=== PATIENT | female | born 1930 | race Caucasian/White ===

== ENCOUNTER 2019-07-03 11:21 | Inpatient (IN) | payer MEDICARE, BC, MEDICAID ==
[2019-07-03] VITALS (211 sets, daily range): BP systolic 123–131; BP diastolic 56–61; PULSE 57–72; TEMP 97.7–98.2; O2SAT 84–100
[~2019-07-03] VITALS: Ht 162.6 cm; Wt 87.9 kg
[~2019-07-03 11:21] MED LIST: ALERCAP25 MG PO; ASPIR-LOW81 MG PO; ASPIRIN E.C. 8181 MG PO; ATORVASTATIN PO; COUMADIN 6MG6 MG/TAB PO; FISH OIL1 IU PO; LEVOTHYROXINE PO; OSCAL W/VIT D250 MG PO
[2019-07-03 11:38] LABS: ARTERIAL BLD GAS O2 SATURATION 95.4 % (92-100); ARTERIAL BLD GAS TCO2 CT 25.8; ARTERIAL BLOOD GAS BASE EXCESS -5.2 (-2-2); ARTERIAL BLOOD GAS HCO3 23.9 meq/L (22-26); ARTERIAL BLOOD GAS PCO2 62.2 mmHg (35-45); ARTERIAL BLOOD GAS PO2 88.4 mmHg (80-100)
[2019-07-03 11:55] LABS: PROTHROMBIN TIME 11.2 SECONDS (9.7-12.8)
[2019-07-03 11:58] LABS: PARTIAL THROMBOPLASTIN TIME 29.2 SECONDS (26.0-37.0)
[2019-07-03 12:04] LABS: BASO % 0.5 % (0.0-2.0); EOS # 0.1 (0.0-0.7); EOS % 1.6 % (0-4.0); GRAN # 3.9 (1.4-6.5); HEMATOCRIT 45.8 % (37.0-47.0); HEMOGLOBIN 13.9 g/dl (12.5-16.0); LYMPH # 1.7 (1.2-3.4); MEAN CELL VOLUME 95 fl (80.0-100.0); MEAN CORPUSCULAR HEMOGLOBIN 29 pg (27.0-31.0); MEAN CORPUSCULAR HGB CONC 30 g/dl (33.0-37.0); MEAN PLATELET VOLUME 10.4 fl (7.4-10.4); MONO # 0.5 (0.1-0.6); MONO % 8.5 % (1.7-9.3); PLATELET COUNT 167 K/mm3 (130-400); RED BLOOD COUNT 4.82 M/mm3 (4.10-5.30); REDCELL DISTRIBUTION WIDTH-CV 11.9 % (11.5-14.5)
[2019-07-03] MEDS ORDERED: CELEXA 20MG20 MG/TAB PO (12:38)
[2019-07-03] MEDS ORDERED: ARICEPT10 MG PO (12:39)
[2019-07-03] MEDS ORDERED: LEVOXYL0.088 MG PO (12:39)
[2019-07-03] MEDS ORDERED: TYLENOL 325MG325 MG PO ×2 (12:40→12:41)
[2019-07-03] MEDS ORDERED: XARELTO10 MG PO (12:41)
[2019-07-03 13:05] LABS: ALANINE AMINOTRANSFERASE 25 U/L (9-52); ALKALINE PHOSPHATASE 73 U/L (50-136); ANION GAP 12 mmol/L (7-16); AST,SGOT 40 U/L (15-37); BILIRUBIN,TOTAL 0.6 mg/dL (0.0-1.0); BLOOD UREA NITROGEN 15 mg/dL (7-17); CALCIUM 9.3 mg/dL (8.4-10.2); CARBON DIOXIDE 25 mmol/L (22-30); CHLORIDE 104 mmol/L (98-107); CREATININE, serum 0.75 (0.52-1.25); GLUCOSE 219 mg/dL (74-106); LIPASE 25 U/L (23-300); POTASSIUM 4.1 mmol/L (3.4-5.0); SODIUM 140 mmol/L (137-145); TOTAL PROTEIN 7.4 gm/dL (6.4-8.2)
[2019-07-03 13:16] LABS: TROPONIN-I < 0.012 ng/mL (0.000-0.035)
--- NOTE | 2019-07-03 15:50 | NUR ---
Gilma was contacted by charge nurse to inquire about contacting [facility] for information about patient. GILMA contacted [facility] and spoke to Anirudh. Anirudh was able to contact this GILMA, and provide relevant information. He also informed Gilma that the nurse in charge of caring for the patient was faxing information to the ER. GILMA contacted charge nurse and gave her the information obtained.
--- NOTE | 2019-07-03 18:51 | NUR ---
Report received from ER and pt brought to ICU room 3 via stretcher. Pt able to stand and pivot to bed. Pt placed on monitor and assessment complete. Pt currently on heparin drip at 1450 units/hr or 14.5ml/hr. No concerns at this time, will continue to follow.
[2019-07-03 19:02] LABS: ARTERIAL BLOOD GAS PCO2 61.7 mmHg (35-45); ARTERIAL BLOOD GAS pH 7.27 (7.35-7.45)
[2019-07-03 19:03] LABS: ARTERIAL BLD GAS O2 SATURATION 97.9 % (92-100); ARTERIAL BLOOD GAS BASE EXCESS -0.6 (-2-2); ARTERIAL BLOOD GAS HCO3 27.6 meq/L (22-26); ARTERIAL BLOOD GAS PO2 114.7 mmHg (80-100)
--- NOTE | 2019-07-03 19:15 | NUR ---
Report given to Jordan ALVAREZ and care transfered. Attempted to call [facility] for updated med list. Message left for RN electronic engineering draftsperson.
--- NOTE | 2019-07-03 19:17 | NUR ---
RECEIVED REPORT FROM KIM AYALA. PT SITTING UP IN BED EATING DINNER. FAMILY AT BEDSIDE. PT PICKS AT IV LINE, NO SIGNS OF INFLITRAITON NOTED. WILL MONITOR PT AND WILL NEED FREQUENT REORIENTATION. MOOD PLEASANT. PT ON 4L VIA NC. VSS. CALL LIGHT WITHIN REACH.
--- NOTE | 2019-07-03 19:40 | NUR ---
SPOKE WITH KIM GRAYSON FROM [facility] TO CONFIRM INFLUENZA VACCINATIONS AND CODE STATUS. KENAN STATES SHE HEARD FAMILY TELL THE ER STAFF FOR PT TO BE A DNR AND IS UP TO DATE ON VACCINE.
[2019-07-03] MEDS ORDERED: CYANOCOBAL1000 MCG/M IM (19:53)
--- NOTE | 2019-07-03 21:30 | NUR ---
RT AT BEDSIDE TO PLACE BIPAP AND ADMINISTER BREATHING TX PER ORDERS. PT REFUSES BOTH TREATMENTS AT THIS TIME. PT STATES " I DO NOT FEEL SHORT OF BREATH." NO ACUTE S/S OF RESP DISTRESS NOTED. POX 100% ON 4L VIA NC. EVEN CHEST RISE AND FALL. NORMAL SKIN COLOR, NO CYANOSIS NOTED. WILL CONTINUE TO MONITOR FOR ANY CHANGES IN RESP STATUS. ALL VSS.
--- NOTE | 2019-07-03 21:36 | NUR ---
PT IS REFUSING TO WEAR A BIPAP AND IS REFUSING ANY BREATHING TREATMENTS. SHE WAS INFORMED THAT IF SHE WERE TO BECOME SHORT OF BREATH AND NEED A BREATHING TREATMENT THAT SHE CAN HAVE THE RN CALL FOR A PRN TREATMENT. RN WAS NOTIFIED OF REFUSAL. AT THIS TIME PT WAS IN NO DISTRESS AND RESTING COMFORTABLY. WILL CONTINUE TO MONITOR AND ASSESS PT.
--- NOTE | 2019-07-03 22:50 | NUR ---
SPOKE WITH RONNIE ZAPIEN. DISCUSSED POC AND PT'S CURRENT STATUS. SHIPPING AND RECEIVING MATERIAL HANDLER REQUESTS ATTEMPT TO TRY AND PLACE BIPAP AGAIN AT THIS TIME. RT NOTIFIED OF ORDERS.
[2019-07-04] VITALS (1153 sets, daily range): BP systolic 109–132; BP diastolic 52–71; PULSE 48–64; TEMP 98.1–98.5; O2SAT 63–100
--- NOTE | 2019-07-04 00:03 | NUR ---
PT IS ON BIPAP JUANI WELL AT THIS TIME. PT IS MOVING MASK AROUND AND OCCASINALLY TAKES IT OFF SHE SAYS WEARING IT IS UNCOMFOTABLE. PT IS ON THE DOCUMENTED SETTINGS AND IS IN NO DISTRESS AT THIS TIME. WILL CONTINUE TO MONITOR AND ASSESS PT.
[2019-07-04 01:42] LABS: PARTIAL THROMBOPLASTIN TIME 169.6 SECONDS (26.0-37.0)
--- NOTE | 2019-07-04 01:55 | NUR ---
NOTIFIED RONNIE ZAPIEN ABOUT PT'S PTT, HEPXA, HEPARIN ON HOLD X3 HRS AT THIS TIME, AND TELEMETRY PARAMETERS WITH HR 48. NEW ORDERS RECEIVED. PT SLEEPING EASILY WITH NO S/S OF ACUTE DISTRESS NOTED. PT AROUSES EASILY AND TALKS TO NURSE. MOOD REMAINS PLEASANT. PT ASKS FREQUENTLY IF SHE CAN TAKE OFF BIPAP AND PULLS AT THE MASK. WILL CONTINUE TO REORIENT PT AND ATTEMPT TO KEEP BIPAP MASK ON. VSS. CALL LIGHT WITHIN REACH. PT DENIES NEEDING TO VOID AT THIS TIME WHEN ASKED.
--- NOTE | 2019-07-04 03:30 | NUR ---
HEPARIN GTT ON HOLD X4 HRS UNTIL HEPXA WAS LESS THAN 1 PER PROTOCOL. RESTARTED AND TITRATED PER PROTOCOL WITH DOUBLE VERIFICATION BY KIM BUENROSTRO.
[2019-07-04 03:32] LABS: GRAN # 4.5 (1.4-6.5); GRAN % 89.9 % (42.2-75.2); HEMATOCRIT 41.1 % (37.0-47.0); HEMOGLOBIN 12.4 g/dl (12.5-16.0); LYMPH # 0.4 (1.2-3.4); LYMPH % 8.1 % (20.0-51.0); MEAN CELL VOLUME 95 fl (80.0-100.0); MEAN CORPUSCULAR HEMOGLOBIN 29 pg (27.0-31.0); MEAN CORPUSCULAR HGB CONC 30 g/dl (33.0-37.0); MEAN PLATELET VOLUME 10.3 fl (7.4-10.4); MONO # 0.1 (0.1-0.6); MONO % 1.8 % (1.7-9.3); PLATELET COUNT 139 K/mm3 (130-400); RED BLOOD COUNT 4.35 M/mm3 (4.10-5.30); REDCELL DISTRIBUTION WIDTH-CV 11.9 % (11.5-14.5)
[2019-07-04 03:44] LABS: CALCIUM 8.8 mg/dL (8.4-10.2); CREATININE, serum 0.63 (0.52-1.25); POTASSIUM 5.2 mmol/L (3.4-5.0)
[2019-07-04 03:51] LABS: PARTIAL THROMBOPLASTIN TIME 77.1 SECONDS (26.0-37.0)
--- NOTE | 2019-07-04 06:35 | NUR ---
PT PULLS THE BIPAP OFF AND STATES SHE DOES NOT WANT TO WEAR IT ANYMORE. EXPLAINED TO PT THAT SHE NEEDS TO WEAR THE NC THEN. PT STATES "THAT IS MUCH BETTER BECAUSE IT IS SMALLER." NO ACUTE S/S OF RESP DISTRESS NOTED. VSS. PT PLACED BACK ON 4L VIA NC. POX 100%. CALL LIGHT WITHIN REACH. PT REQUESTS LIGHTS BACK OFF SO SHE COULD SLEEP A LITTLE LONGER.
[2019-07-04 10:09] LABS: ARTERIAL BLD GAS O2 SATURATION 98.4 % (92-100); ARTERIAL BLD GAS TCO2 CT 30.4; ARTERIAL BLOOD GAS BASE EXCESS 0.8 (-2-2); ARTERIAL BLOOD GAS HCO3 28.6 meq/L (22-26); ARTERIAL BLOOD GAS PCO2 59.5 mmHg (35-45); ARTERIAL BLOOD GAS PO2 117.3 mmHg (80-100)
--- NOTE | 2019-07-04 10:12 | NUR ---
Heparin on hold at this time for elevated HepXa.
--- NOTE | 2019-07-04 11:11 | NUR ---
Dr Sam in to see pt at this time.
--- NOTE | 2019-07-04 13:28 | NUR ---
CREDIT AND LOAN COLLECTIONS SUPERVISOR student met with the patient (sleeping on Bi-PAP) and the patient's son, Michael/DPOA-HC and [id number], Sandra to complete initial assessement. The patient lives at [facility] at [facility]. The patient receives assistance with ADLs and does not use DME. The patient's PCP is Dr. Pardo and patient receives medications from [facility]. The patient has advanced directives in the EMR. The patient's son, Michael would like the patient to return to [facility] at discharge, Michael signed the patient choice form and it was put in the chart. web services architect will continue to follow.
[2019-07-04 14:19] LABS: ARTERIAL BLD GAS O2 SATURATION 99.1 % (92-100); ARTERIAL BLD GAS TCO2 CT 27.7; ARTERIAL BLOOD GAS BASE EXCESS 0.3 (-2-2); ARTERIAL BLOOD GAS HCO3 26.2 meq/L (22-26); ARTERIAL BLOOD GAS PCO2 47.7 mmHg (35-45); ARTERIAL BLOOD GAS PO2 149.1 mmHg (80-100); ARTERIAL BLOOD GAS pH 7.36 (7.35-7.45)
--- NOTE | 2019-07-04 14:30 | NUR ---
Called Dr Sam regarding ABG results and eliquis. States will follow up with Dr Denton and let me know further plan of care.
[2019-07-04 14:51] LABS: COLLECTION METHOD CLEAN CATCH
[2019-07-04 15:03] LABS: MUCOUS Present /lpf; PH 5 (5-8); URINE APPEARANCE Hazy; URINE BACTERIA Rare /hpf; URINE BILIRUBIN Negative (NEGATIVE); URINE BLOOD Negative (NEGATIVE); URINE COLOR Yellow; URINE GLUCOSE Negative (NEGATIVE); URINE KETONE Negative (NEGATIVE); URINE LEUKOCYTE ESTERASE Trace (NEGATIVE); URINE NITRATE Positive (NEGATIVE); URINE PROTEIN(semi-quant) 1+ (NEGATIVE); URINE RBC 0-2 /hpf; URINE UROBILINOGEN Negative (NEGATIVE)
--- NOTE | 2019-07-04 19:18 | NUR ---
Report given to Lu ALVAREZ and care transfered.
--- NOTE | 2019-07-04 21:07 | NUR ---
PT ALERT AND ORIENTED X2. PT HAS UNDERLYING DEMENTIA HENCE CONFUSED AT TIMES. PT ON O2, VSS AND DENIES ANY PAIN AT THIS TIME. PT TRYING TO GET OUT OF BED WITHOUT ASSISTANCE, BED ALARM ON AND ON CLOSE MONITORING BY THIS ENGAGEMENT EXECUTIVE. WILL CONTINUE TO MONITOR.
--- NOTE | 2019-07-04 23:20 | NUR ---
pt refusing to wear Bipap, RT aware.
[2019-07-05] VITALS (536 sets, daily range): BP systolic 109–167; BP diastolic 42–73; PULSE 50–68; TEMP 97.7–98.7; O2SAT 82–100
--- NOTE | 2019-07-05 07:55 | NUR ---
Dr. Denton rounds at this time. Orders as entered [facility]PO[facility].
--- NOTE | 2019-07-05 09:30 | NUR ---
Dr. Sam rounds at this time. Orders as entered [facility]PO[facility].
--- NOTE | 2019-07-05 11:00 | NUR ---
Initial visit; Patient doing well, daughter present. Both thanked Special Investigator for looking in on Carla and wishing her well and offering God's blessings.
--- NOTE | 2019-07-05 11:50 | NUR ---
Patient transported to medical room 312 via WC. Assisted to bed and left in low and locked position, call light within reach, rails up x3, bed alarm armed and KIM Galindo at bedside.
--- NOTE | 2019-07-05 18:41 | NUR ---
PT HAD UNEVENTFUL DAY. HAS BEEN PLEASENT AND COOPERATIVE WITH CARES. NO NEEDS VOICED.
--- NOTE | 2019-07-05 21:12 | NUR ---
Initial shift assessment done- denies pain- o2 at 1L/nc, confused- very pleasant, laughing,talking- states she feels just fine. VSS. Bed alarm on- close to nsg station-
[2019-07-06 03:48] VITALS: BP 131/47; PULSE 64; TEMP 98
--- NOTE | 2019-07-06 05:50 | NUR ---
Quiet night- very pleasant, Up to bathroom with assist-steady on feet, VSS
[2019-07-06 07:55] VITALS: BP 133/67; PULSE 65; TEMP 98
--- NOTE | 2019-07-06 08:00 | NUR ---
Assessment complete. Pt sitting up in bed, alert and oriented to self and place. Breath sounds slightly diminished, CTAB. BS active x 4. Pt denies pain. Saline lock IV to left hand without s/s of complications. No further needs reported. Call light in reach.
[2019-07-06] MEDS ORDERED: XARELTO15 MG PO (10:51)
[2019-07-06] MEDS ORDERED: XARELTO20 MG PO (10:52)
[2019-07-06] MEDS ORDERED: OMNICEF 300MG300 MG PO (10:53)
[2019-07-06] MEDS ORDERED: IPRATROPIUM BROM3 M1 IH ×2 (10:58→10:59)
[2019-07-06] MEDS ORDERED: ASPIRIN E.C. 8181 MG PO (11:35)
[2019-07-06 13:26] LABS: CREATININE, serum 0.78 (0.52-1.25); POTASSIUM 4.3 mmol/L (3.4-5.0)
[2019-07-06 13:46] VITALS: BP 133/67; PULSE 65; TEMP 98
[2019-07-06 13:47] VITALS: BP 138/59; PULSE 58; TEMP 98.5
--- NOTE | 2019-07-06 14:26 | NUR ---
Security Dispatcher attended clinical rounds with the team and patient to discharge today. DAMEON spoke with Juliana at [facility] and faxed updates. Juliana requested skilled orders for patient and DAMEON provided this request to Hospitalist, who advised skilled orders would be written. DAMEON collaborated with Juliana to set up transportation for 1430. DAMEON provided update to RN, Sariah. DAMEON contacted patient's son, Michael to update on discharge plan for patient to discharge to [facility] until stable to move back to Assisted Living. Michael is in agreeance. DAMEON met with patient and patient's other son, Yang to review discharge plan and they both are in agreeance. DAMEON presented IM form to patient who requested Yang sign. DAMEON placed IM form on chart and provided copy to patient. DAMEON faxed discharge orders including BiPap settings to Juliana at [facility]. No further concerns at this time.
--- NOTE | 2019-07-06 14:36 | NUR ---
Report called to nurse at [facility] at [facility]. Pt discharged to [facility] via accompanied by transportation staff and pt's son.
== END 2019-07-06 14:30 | DRG 175 ==
LOC: COL.ER 11:21 → ICU 15:53 → MEDICAL 07-05 11:51
PROVIDERS: Emergency Medicine; Internal Medicine Pulmonary Disease; Physician Assistant; Student in an Organized Health Care Education/Training Program; ADMIT Internal Medicine
PROC: 5A09457 Assistance with Respiratory Ventilation, 24-96 Consecutive Hours, Continuous Positive Airway Pressure (ICD-10-PCS; principal; 2019-07-03)
DX: I26.99 Other pulmonary embolism without acute cor pulmonale (principal); J96.01 Acute respiratory failure with hypoxia; J96.02 Acute respiratory failure with hypercapnia; N39.0 Urinary tract infection, site not specified; J44.9 Chronic obstructive pulmonary disease, unspecified; E87.5 Hyperkalemia; G47.33 Obstructive sleep apnea (adult) (pediatric); E78.5 Hyperlipidemia, unspecified; R73.9 Hyperglycemia, unspecified; I10 Essential (primary) hypertension; Z66 Do not resuscitate; E03.9 Hypothyroidism, unspecified; F32.9 Major depressive disorder, single episode, unspecified; I25.10 Atherosclerotic heart disease of native coronary artery without angina pectoris; F03.90 Unspecified dementia, unspecified severity, without behavioral disturbance, psychotic disturbance, mood disturbance, and anxiety; Z85.3 Personal history of malignant neoplasm of breast; Z86.73 Personal history of transient ischemic attack (TIA), and cerebral infarction without residual deficits; Z79.01 Long term (current) use of anticoagulants; Z87.891 Personal history of nicotine dependence; Z86.718 Personal history of other venous thrombosis and embolism
CPT/HCPCS: 99223-AI; 99232-AI; 99233-AI; 99239; A4216; J0696; J1644; J2405; J2920; J7030; Q9967